=== PATIENT | male | born 1945 | race Caucasian/White ===

== ENCOUNTER → 2024-03-24 12:02 | Outpatient (CLI) | payer MEDICARE, OTHER, SELFPAY ==
--- NOTE | 2024-03-24 13:07 | DIAB.MNT ---
Initial Diabetes Medical Nutrition Therapy Assessment Name: Beau Bernstein Date: 03/24/24 Time: 1-230p Dx: Type II Diabetes Provider: Felice Segundo Learning Style: Listening/Reading Beau presents for initial DM visit with , Alexsandra. Newly diagnosed DM. FH of DM with brother and father. States his main concern today is diet. Has been reading about DM from good resources, ie ADA. While in [place] during February went to the hospital due to symptoms and BG was 500s and hgA1c >14. Saw PCP on 03/13 and started insulin and Metformin. Previously weighed 200# x 1 year ago, and now 160-165#. weight loss r/t hyperglycemia? Endorses increased weakness with wt loss. Trying to avoid additional wt loss. This RD is curious if Beau might be a ANDRÉS or type 1.5 given his presentation (big jump in hgA1c in short time, BG of 500mg/dl, h/o autoimmune disease, seemingly low HS insulin needs at 10u with pretty in range FBG recently and elevated meal times). May benefit from cpeptide test. However, he has had a h/o of prediabetes for a few years per report. Endorses LE tingling and eye pain with looking upward that seems to worsen with elevated BG Sees usability specialist this week. Sees PCP 03/30/24 Diet Recall: 8-10a; toast x 2 with butter OR oatmeal 1/4c dry with fruit 10-11a apple 10a-130p: nothing or sandwich 5p: soup or pasta x 1c+ with veg and meat/fish OR salads potatoes infrequently, likes sweet potatoes Sometimes rice 24oz water 1-2c coffee premier protein shake 1-2 tea 12-24oz d/c ETOH Anthropometrics: Ht: 69 Wt: 165# reported Physical Activity: Better weather days, walking 2 mi about 2-3 days per week. Has a recumbent bike he sometimes uses. Self-Monitoring Blood Glucose: Wearing CGM. Has questions on connecting to CGM reports. FBG this week mostly in goal or at least under 150mg/dl. After meal readings often elevated in the 200s. Printed report for pt to share with provider if no access to CGM reports via [employer]. TIR 20% very high 39% high 41% inrange 0% low avmg/dl GMI: 8.3% std dev: 69mg;dl variance 33.1% Diabetes Medications: 1000mg Metformin BID 10u Glargine Pertinent Labs: Per referral notes: HgA1c: 6.7% 09/2023 >14% 02/2024 Past Medical History: Per referral T2DM, Hypothyroidism, unsteadiness, BL foot drop Nutrition Rx: Carbohydrates: Meal: 30-45g Snacks:15-30g Nutrition Diagnosis: - inconsistent protein intake r/t nutrition knowledge deficit aeb diet recall - predicted excessive CHO intake r/t new dx and nutrition knowledge deficit aeb diet recall and recent hgA1c Intervention: This participant was very receptive. Provided appropriate educational handouts. Discussed the following topics: Completed intake assessment. Discussed barriers to care. Pathophysiology of T2DM HgA1c, its correlation to blood glucose numbers, and rationale for goal Potential goals for BG and TIR with CGM Plate Method, impact of macronutrients on blood sugar, meal timing, carbohydrate counting, pairing macronutrients and spreading out carbohydrates for better blood glucose management Recommended servings for carbohydrates at meals and snacks [facility] nutrition Brainstormed appropriate meal/snack ideas based on food preferences Role of physical activity and following provider guidelines for safety Medication management Created SMART goals for patient self-care and success. Goals: Pair carbs and protein for meals/snacks Try to eat q 3-5 hours Restart recumbent bike Consider some safe resistance training Follow-up: [facility] follow-up in 4 weeks for DSME classes and 1:1 after. Seems that Beau has already made some diet changes and has educated himself. This RD has some concern for his type of DM given how rapidly his glucose management changed. Seems the current dose of 10u HS insulin is doing well for FBG, but after meal readings are elevated. Will continue to evaluate. Salome Bagley RDN, [facility] Certified Diabetes Care and Child Development Assistant P: [phone] Thank you for this referral
== END ==
LOC: DIET 12:03
PROVIDERS: PCP Student in an Organized Health Care Education/Training Program; Referring Provider Student in an Organized Health Care Education/Training Program
DX: E11.65 Type 2 diabetes mellitus with hyperglycemia (principal); Z71.3 Dietary counseling and surveillance; Z83.3 Family history of diabetes mellitus; Z79.4 Long term (current) use of insulin; Z79.84 Long term (current) use of oral hypoglycemic drugs; E03.9 Hypothyroidism, unspecified
CPT/HCPCS: 97802

== ENCOUNTER → 2024-04-01 10:56 | Outpatient (CLI) | payer MEDICARE, OTHER, SELFPAY ==
--- NOTE | 2024-04-01 10:59 | DI.MRI.S_ITS ---
PROCEDURE: MR HEAD/BRAIN WO CON INDICATIONS: BILATERAL FOOT DROP TECHNIQUE: Noncontrast axial T1 spin echo, axial T2 fast spin echo, sagittal and axial FLAIR, coronal T2 fast spin echo, axial gradient echo, axial diffusion and ADC through the brain. COMPARISON: None. FINDINGS: CSF Spaces: Basal cisterns are patent. No extra-axial fluid collections. Ventricles are normal in size and shape. Brain: No intracranial masses or hemorrhage. Sebastian/white matter interface is normal. Brainstem appears normal. Diffusion-weighted sequence is unremarkable without evidence of acute infarct. Normal intravascular flow voids are present. Skull and face: Calvarium has normal marrow signal. Orbits appear normal. Sinuses: Sinuses and mastoids are clear. IMPRESSION: Unremarkable MRI of the brain. No acute infarct, hemorrhage or mass lesion Approved by: Anthony Escudero M.D. on 04/01/2024 at 11:21
== END ==
LOC: MRI 10:58
PROVIDERS: PCP Student in an Organized Health Care Education/Training Program; Referring Provider Student in an Organized Health Care Education/Training Program; Visit Provider Student in an Organized Health Care Education/Training Program
DX: M21.371 Foot drop, right foot (principal); M21.372 Foot drop, left foot; R26.89 Other abnormalities of gait and mobility
CPT/HCPCS: 70551

== ENCOUNTER → 2024-04-21 08:07 | Outpatient (CLI) | payer MEDICARE, OTHER, SELFPAY ==
--- NOTE | 2024-05-20 16:56 | DIAB.FU ---
Diabetes Education Class Series: Diabetes and Nutrition Name: Beau Bernstein Date: 04/21/24 Time: 562-2173a Beau presents for class 1 of 3 for diabetes ed. Reports trying to better understand his BG readings. Reports some excessive snacking pre dinner. Class topics covered: Debunk nutrition myths and discuss how to sustain healthy eating long-term through moderation and variety Define macronutrients and determine their impact on blood sugars Discuss macronutrient pairing, Plate Method, and carb counting Review general recommendations for carbohydrates Practice label reading Discuss the role of fiber in diabetes and provide examples of sources Review heart health nutrition: fats, fiber, and sodium Determine recommendations for grocery shopping and eating out Discuss alcohol recommendations Review the role of substitute sugars in diabetes management Set SMART goals Goal Set: Avoid pre dinner snack Follow-up: Diabetes Physiology and Medication Class in one week Salome Bagley RDN, [facility] Certified Diabetes Care and Underground Supervisor P: [phone] Thank you for this referral
== END ==
PROVIDERS: PCP Student in an Organized Health Care Education/Training Program; Referring Provider Student in an Organized Health Care Education/Training Program
DX: E11.9 Type 2 diabetes mellitus without complications (principal); Z71.3 Dietary counseling and surveillance
CPT/HCPCS: G0109

== ENCOUNTER → 2024-04-28 08:40 | Outpatient (CLI) | payer MEDICARE, OTHER, SELFPAY ==
--- NOTE | 2024-05-20 17:02 | DIAB.FU ---
Diabetes Education Class Series: Diabetes Physiology and Medications Name: Beau Bernstein Date: 04/28/2024 Time: [id number] Beau presents for class 2 of 3. Reports he has been working on reducing evening snacks. Today has some questions regarding insulin action and types. Class topics covered: ? Diabetes pathophysiology ? Discuss different types of diabetes ? Review criteria for diagnosing diabetes ? Review HgA1c measurement and associated blood sugars ? Review blood sugar monitoring safety, technique, and goals ? Discuss ways to reduce complications associated with diabetes, includes microvascular and macrovascular complications ? Review diabetes medications types, action, and side effects ? Health care visits recommended for people with T2DM ? Immunization recommended for people with T2DM ? SMART goals review Follow-up: Diabetes Lifestyle and Ongoing Support Class next week Salome Bagley RDN, [facility] Certified Diabetes Care and Reimbursement Manager P: [phone] Thank you for this referral
== END ==
PROVIDERS: PCP Student in an Organized Health Care Education/Training Program; Referring Provider Student in an Organized Health Care Education/Training Program
DX: E11.9 Type 2 diabetes mellitus without complications (principal); Z71.3 Dietary counseling and surveillance
CPT/HCPCS: G0109

== ENCOUNTER → 2024-05-05 07:54 | Outpatient (CLI) | payer MEDICARE, OTHER, SELFPAY ==
[2024-05-05 08:33] LABS: Estimated Glomerular Filt Rate > 60 mL/min (>60)
--- NOTE | 2024-05-05 10:45 | DI.CT.S_ITS ---
PROCEDURE: CT CHEST ABD PEL W CON INDICATIONS: WEIGHT LOSS TECHNIQUE: After the administration of intravenous contrast, 5 mm thick sections acquired from the lung apices to the symphysis. 5 mm coronal and sagittal reformats were performed, with additional 7 mm MIP reformats through the lungs. For radiation dose reduction, the following was used: automated exposure control, adjustment of mA and/or kV according to patient size. COMPARISON: None. FINDINGS: Image quality: Excellent. CHEST: Lower Neck: No enlarged lymph nodes. Thyroid: Thyroid is diminutive. Axillae: No enlarged lymph nodes. Chest Wall: Unremarkable. Lungs and Pleura: No pneumothorax or pleural effusions. Calcified granuloma. Heart: Heart size is normal. No pericardial effusion. Thoracic Vessels: The aorta and pulmonary arteries demonstrate normal size. Mediastinum and Kellie: No enlarged lymph nodes. Esophagus: No wall thickening. No hiatal hernia. ABDOMEN: Liver: No solid mass. Gallbladder: No radiopaque gallstones or wall thickening. Biliary ducts: No biliary dilation. Pancreas: Chronic pancreatitis. There is pancreatic ductal dilation. Obstructing stone in the pancreatic duct measuring 1.1 cm. Hypoattenuating lesion in the pancreatic body measuring 1.8 cm (series 2, image 91). Spleen: Thin, subcapsular collection of the spleen periphery (series 3, image 65). Adrenal Glands: No adrenal nodules. Kidneys and Ureters: No hydronephrosis. No solid mass. No complex renal cystic lesion which requires follow up. Stomach and Bowel: Normal colonic caliber, without significant wall thickening. Peritoneum: No abnormal intraperitoneal fluid. No free air. Ventral Wall: No significant ventral hernia. Abdominal Nodes: No retroperitoneal or mesenteric adenopathy by size criteria. Vessels: Aorta and inferior vena cava are normal in size. PELVIS: Pelvic Organs: Unremarkable. Bladder: No bladder wall thickening, accounting for underdistention. Pelvic Nodes: No enlarged lymph nodes. Miscellaneous: No inguinal hernias are seen. Bones: No aggressive osseous abnormality. Very mild a vascular necrosis of the right femoral head, without cortical collapse. Degenerative disc disease of the lumbar spine. IMPRESSION: Thyroid is diminutive, suggestive of chronic thyroiditis. Correlate with thyroid panel if necessary. Chronic pancreatitis. Obstructing 1.1 cm stone in the pancreatic duct. Recommend GI referral if not performed in the past. Additionally, there is a hypoattenuating lesion in the pancreatic body measuring 1.8 cm, probably a pancreatic cystic lesion. Recommend further characterization with MRI with contrast (pancreatic mass protocol). Avascular necrosis of the right femoral head, without cortical collapse. Dictated by: Lopez Aldrich M.D. on 05/05/2024 at 15:08 Approved by: Lopez Aldrich M.D. on 05/05/2024 at 15:16
== END ==
PROVIDERS: PCP Student in an Organized Health Care Education/Training Program; Referring Provider Student in an Organized Health Care Education/Training Program; Visit Provider Student in an Organized Health Care Education/Training Program
DX: R63.4 Abnormal weight loss (principal); K86.1 Other chronic pancreatitis; K86.89 Other specified diseases of pancreas; K86.9 Disease of pancreas, unspecified; M51.369 Other intervertebral disc degeneration, lumbar region without mention of lumbar back pain or lower extremity pain; M87.9 Osteonecrosis, unspecified; E11.9 Type 2 diabetes mellitus without complications; Z71.3 Dietary counseling and surveillance
CPT/HCPCS: 36415; 71260; 74177; 82565; 97803; Q9967

== ENCOUNTER → 2024-05-05 07:57 | Outpatient (CLI) | payer MEDICARE, OTHER, SELFPAY ==
--- NOTE | 2024-06-02 16:37 | DIAB.MNTFU ---
Follow-up Diabetes Medical Nutrition Therapy Assessment Name: Beau Bernstein Date: 05/05/24 Time: [id number] Dx: Type II Diabetes Provider: Felice Beau presents for follow-up DM visit, after 2 of 3 DM ed classes. This was scheduled as a class, however since other participant could not make it today we switched to a 1:1. Reports he has a PCP visit last night and provider was happy with his progress. No labs for review. States he is schedule dfor hgA1c for May. Using plate method for nutrition. Prefers this over carb counting. Always incorporating veggies. Sometimes missing protein. Breakfast tends to have higher BG, ie bagel. States each time he eats BG goes above 180mg/dl. States he is taki n6u Glargine, down from 10u, was having lows. Calibrating CGM. Goes on vacation in May. UTD eye appt checking feet daily Has a lot of resources per report, ie books Anthropometrics: Ht: 69 Wt: 165# reported Physical Activity: Better weather days, walking 2 mi about 2-3 days per week OR bike OR yardwork. Self-Monitoring Blood Glucose: Wearing CGM. improved time in range, though still below goal. Significant reduced time >250mg/dl. Reports FBG rangin from 124-159mg/dl. May benefit form additional oral DM med or meal time insulin. TIR 12% very high 44% high 44% inrange 0% low avmg/dl GMI: 7.9% std dev: 49mg;dl variance 25.1% LastTIR 20% very high 39% high 41% inrange 0% low avmg/dl GMI: 8.3% std dev: 69mg;dl variance 33.1% Diabetes Medications: 1000mg Metformin BID 10u Glargine--- reduced to 6u Pertinent Labs: Per referral notes: HgA1c: 6.7% 09/2023 >14% 02/2024 Past Medical History: Per referral T2DM, Hypothyroidism, unsteadiness, BL foot drop Nutrition Rx: Plate MEthod Nutrition Diagnosis: - inconsistent protein intake r/t nutrition knowledge deficit aeb diet recall- continued - predicted excessive CHO intake r/t stage of change aeb pt report - continued / improving Intervention: This participant was very receptive. Provided appropriate educational handouts. Discussed the following topics: Physical activity Nutrition changes Breakfast ideas Adding protein more consistently Carb portion recs Medication management Created SMART goals for patient self-care and success. Goals: Pair carbs and protein for meals/snacks- improved Try to eat q 3-5 hours- not discussed Restart recumbent bike- met Consider some safe resistance training- not met Try to eat protein at each meal/snack- new Reduce carb portions at meals- new Follow-up: [facility] follow-up in 2-3 weeks offered, however he would like to follow-up prn per request. Encouraged him to call or message with follow-up needs or questions prn. He agreed. Salome Bagley RDN, [facility] Certified Diabetes Care and Freight Breaker P: [phone] Thank you for this referral
== END ==
PROVIDERS: PCP Student in an Organized Health Care Education/Training Program; Referring Provider Student in an Organized Health Care Education/Training Program
DX: E11.9 Type 2 diabetes mellitus without complications (principal); Z71.3 Dietary counseling and surveillance
CPT/HCPCS: 97803